=== PATIENT | female | born 1955 | race American Indian/Alaskan Native ===

== ENCOUNTER 2020-02-03 21:39 | Observation (INO) | payer OTHER ==
[2020-02-03] MEDS ORDERED: SODIUM CHLORIDE 0.9% 1000 ML 1,000 ML IV ONE (22:08)
--- NOTE | 2020-02-03 22:11 | Emergency Department Report ---
ED General Adult HPI - General Chief complaint: Syncope Stated complaint: SYNCOPAL EPISODE PUI?: No Time Seen by Provider: 02/03/20 21:52 Source: patient, EMS, RN notes reviewed Mode of arrival: Stretcher Limitations: No Limitations - History of Present Illness Initial comments: Primary care doctor: Dr. Medina The patient is a 64-year-old female who is not known to myself previously, has a past medical history of hypertension, high cholesterol, and sporadic hypokalemia. She is brought to the hospital today by emergency medical services with a complaint of lightheadedness and hypotension. The patient states that in 2016 she had a medical evaluation for low blood pressure, loss of consciousness, and was found to be hypokalemic. She takes losartan for blood pressure, and a sleep medication that "starts with a T, but I cannot remember the name of the medication." She denies DVT and pulmonary embolism risk factors. She denies physical pain. She states that over the past few days, she is not really consumed much water, because "I have been busy with things to do." Today, she was in her usual state of health, when she began to feel lightheaded, nauseous, and believes that she lost consciousness. Prior to the event, there is no complaint of headache, neck pain, chest pain, abdominal pain or shortness of breath. Apparently, she has lost consciousness or had near loss of consciousness twice today. She was seen by EMS, initially declined medical transport, had the event happen again, and at that point in time, agreed to medical transportation. She was found to be hypotensive in the field, with blood pressure in the 80s, started on IV fluids by EMS, and this improved her blood pressure. She states that she has had red stool secondary to watermelon consumption. She recreationally consumes tobacco, and occasional alcohol. She denies recreational drugs. At the moment, she is asymptomatic. -: Sudden Consistency: intermittent Improves with: none Worsens with: none - Related Data Home Medications Medication Instructions Recorded Confirmed Last Taken Ascorbic Acid [Vitamin C] 500 mg PO DAILY 02/03/20 02/03/20 02/03/20 AtorvaSTATin [Lipitor] 20 mg PO DAILY 02/03/20 02/03/20 02/03/20 Multivitamin Tab [Multiple Vitamin 1 tab PO DAILY 02/03/20 02/03/20 02/03/20 TAB (Theragran)] Olmesartan Medoxomil [Benicar] 40 mg PO DAILY 02/03/20 02/03/20 02/03/20 [place]-3 Fatty Acids/Fish Oil [Fish 1,000 mg PO DAILY 02/03/20 02/03/20 02/03/20 Oil] Allergies Allergy/AdvReac Type Severity Reaction Status Date / Time No Known Allergies Allergy Unverified 02/03/20 21:53 ED Review of Systems ROS: Stated complaint: SYNCOPAL EPISODE Other details as noted in HPI Constitutional: malaise. denies: fever Eyes: denies: eye discharge Respiratory: denies: cough, shortness of breath, SOB with exertion, SOB at rest, wheezing Cardiovascular: syncope. denies: chest pain, palpitations, dyspnea on exertion Gastrointestinal: nausea. denies: hematemesis, melena, hematochezia Genitourinary: denies: dysuria Musculoskeletal: denies: back pain Skin: denies: lesions Neurological: weakness Hematological/Lymphatic: denies: easy bleeding ED Past Medical Hx - Past Medical History Previous Medical History?: Yes Hx Hypertension: Yes Additional medical history: Hypokalemia, high cholesterol - Surgical History Past Surgical History?: No - Social History Smoking Status: Current Every Day Smoker Substance Use Type: Alcohol, Marijuana - Medications Home Medications: Home Medications Medication Instructions Recorded Confirmed Last Taken Type Ascorbic Acid [Vitamin C] 500 mg PO DAILY 02/03/20 02/03/20 02/03/20 History AtorvaSTATin [Lipitor] 20 mg PO DAILY 02/03/20 02/03/20 02/03/20 History Multivitamin Tab [Multiple Vitamin 1 tab PO DAILY 02/03/20 02/03/20 02/03/20 History TAB (Theragran)] Olmesartan Medoxomil [Benicar] 40 mg PO DAILY 02/03/20 02/03/20 02/03/20 History [place]-3 Fatty Acids/Fish Oil [Fish 1,000 mg PO DAILY 02/03/20 02/03/20 02/03/20 History Oil] ED Physical Exam - General Limitations: No Limitations General appearance: alert, in no apparent distress - Head Head exam: Present: atraumatic, normocephalic - Eye Eye exam: Present: normal appearance, PERRL, EOMI, other (Visual acuity intact to finger counting, color perception, reading at a close distance). Absent: nystagmus - ENT ENT exam: Present: normal exam, normal orophraynx, mucous membranes moist, normal external ear exam - Neck Neck exam: Present: normal inspection, full ROM. Absent: tenderness, meningismus - Respiratory Respiratory exam: Present: normal lung sounds bilaterally. Absent: respiratory distress - Cardiovascular Cardiovascular Exam: Present: regular rate, normal rhythm, normal heart sounds. Absent: bradycardia, tachycardia, irregular rhythm, systolic murmur, diastolic murmur, rubs, gallop - GI/Abdominal GI/Abdominal exam: Present: soft, normal bowel sounds. Absent: distended, tenderness, guarding, rebound, rigid, pulsatile mass - Rectal Rectal exam: Present: normal inspection, normal rectal tone, heme (-) stool, other (Chaperoned by nurse Jesika Coleman). Absent: heme (+) stool, black stool, bloody stool, fecal impaction, hemorrhoids, mass, tenderness - Extremities Exam Extremities exam: Present: normal inspection, full ROM, other (2+ pulses noted in the bilateral upper and lower extremities. There is no palpable cord. negative Homans sign. Muscular compartments are soft. The pelvis is stable.). Absent: pedal edema, calf tenderness - Back Exam Back exam: Present: normal inspection, full ROM. Absent: tenderness, CVA tenderness (R), CVA tenderness (L), paraspinal tenderness, vertebral tenderness - Neurological Exam Neurological exam: Present: alert, oriented X3, normal gait, other (There is no facial droop. The tongue is midline. Extraocular movements are intact bilaterally. There is 5 out of 5 strength in bilateral upper and lower extremities. Sensation is intact to light touch bilateral upper and lower extremities. There is no past-pointing. There is no pronator drift. There is normal [id number]. There is a normal gait.). Absent: motor sensory deficit - Psychiatric Psychiatric exam: Present: normal affect, normal mood - Skin Skin exam: Present: warm, dry, intact, normal color. Absent: rash ED Course Vital Signs 02/03/20 02/03/20 02/03/20 22:05 22:12 23:00 Temperature 98.5 F Pulse Rate 61 62 Respiratory 16 16 21 Rate Blood Pressure 113/69 Blood Pressure 101/58 [Right] O2 Sat by Pulse 99 100 100 Oximetry - Reevaluation(s) Reevaluation #1: 02/03/20 22:24 Differential diagnosis, including but not limited to: Orthostasis, vagal event, structural cardiac disease, thyroid derangement, electrolyte derangement Assessment and plan: 64-year-old female with decrease oral/water intake, with history of hypotension, loss of consciousness, now resolved. She is not current ly tachycardic, tachypneic or hypoxic, she denies DVT and pulmonary embolism risk factors, I do find the patient to be low risk by Wells criteria. She has a GCS of 15, NIH score of 0, walks with a steady gait. Blood pressure improved at this time. Check basic labs, EKG x2, troponin x2, x-ray of the chest, continue IV fluids, and observe patient. Discussed plan of care with patient, who verbalized understanding, and is amenable to this plan of care. Reevaluation #2: 02/03/20 22:34 Single/portable x-ray read the chest negative to my interpretation. Patient playing on her cell phone at this time, and in no acute distress. Reevaluation #3: 02/03/20 22:45 EKG found to be markedly abnormal. Questionable ischemic findings noted. The p atient is not having chest pain. However, given age, cardiovascular risk factor profile, EKG morphology, the patient is at moderate risk for major adverse cardiac event as per heart score. D-dimer ordered given left axis deviation with left anterior fascicular block. At this point in time, given history of syncope x2, hypotension, abnormal EKG, no recent history of cardiac risk ratification, patient meets criteria for hospitalization for the aforementioned. We will admit the patient once her initial diagnostics have resulted. Reevaluation #4: 02/03/20 23:52 ct head and chest negative Dr Moises Turner to admit for cardiac risk ratification, syncope ED Medical Decision Making - Lab Data Result diagrams: 02/03/20 22:30 02/03/20 22:30 Vital Signs 02/03/20 02/03/20 22:05 22:12 Temperature 98.5 F Pulse Rate 61 Respiratory 16 16 Rate Blood Pressure 101/58 [Right] O2 Sat by Pulse 99 100 Oximetry - EKG Data -: EKG Interpreted by Me EKG shows normal: sinus rhythm Rate: normal - EKG Data When compared to previous EKG there are: previous EKG unavailable 02/03/20 22:44 There is no prior EKG available for comparison. Sinus rhythm, 60 bpm, left axis deviation, left anterior fascicular block, biphasic/abnormal T waves V2, V3, V4, flattened T waves in the lateral leads. The EKG is abnormal, the EKG is not a STEMI - Radiology Data Radiology results: pending, report reviewed, image reviewed Print Report Referring Physician: STACY MARIA Patient Name: KYLE SINGH Date of : 1955 Sex: Female Report Date: 2020-02-03 Report Status: Finalized Findings [address] [address] XRay Report Signed Patient: KYLE SINGH MR#: [id number] : 1955 Acct:[id number] Age/Sex: 64 / F ADM Date: 02/03/20 Loc: ED Attending Dr: Ordering Physician: STACY MARIA MD Date of Service: 02/03/20 Procedure(s): XR chest 1V ap Accession Number(s): [id number] cc: STACY MARIA MD Fluoro Time In Minutes: CHEST 1 VIEW INDICATION / CLINICAL INFORMATION: syncope hypotension. COMPARISON: None available. FINDINGS: SUPPORT DEVICES: None. HEART / MEDIASTINUM: No significant abnormality. LUNGS / PLEURA: No significant pulmonary or pleural abnormality. No pneumothorax. ADDITIONAL FINDINGS: No significant additional findings. IMPRESSION: 1. No acute findings. Signer Name: Jh Gottlieb MD Signed: 02/03/2020 10:31 PM Workstation Name: [id number] Transcribed By: Dictated By: Jh Gottlieb MD Electronically Authenticated By: Jh Gottlieb MD Signed Date/Time: 02/03/202230 DD/ 30 TD/TT: Critical care attestation.: If time is entered above; I have spent that time in minutes in the direct care of this critically ill patient, excluding procedure time. ED Disposition Clinical Impression: Syncope, History of hypotension, Abnormal EKG Disposition: OP ADMIT IP TO THIS HOSP Is pt being admited?: Yes Does the pt Need Aspirin: Yes Condition: Good Instructions: Syncope (ED) Referrals: PRIMARY CARE,MD [Primary Care Provider] - 3-5 Days
[2020-02-03] MEDS: SODIUM CHLORIDE 0.9% 1000 ML 2,000 ML IV ONE (22:30)
--- NOTE | 2020-02-03 22:36 | XRay Report ---
CHEST 1 VIEW INDICATION / CLINICAL INFORMATION: syncope hypotension. COMPARISON: None available. FINDINGS: SUPPORT DEVICES: None. HEART / MEDIASTINUM: No significant abnormality. LUNGS / PLEURA: No significant pulmonary or pleural abnormality. No pneumothorax. ADDITIONAL FINDINGS: No significant additional findings. IMPRESSION: 1. No acute findings. Signer Name: Jh Gottlieb MD Signed: 02/03/2020 10:31 PM Workstation Name: [id number]
[2020-02-03 22:44] LABS: Hematocrit 37.3 % (30.3-42.9); Hemoglobin 12.2 gm/dl (10.1-14.3); Mean Corpuscular HGB Conc 33 % (30-34); Mean Corpuscular Volume 88 fl (79-97); Platelet Count 202 K/mm3 (140-440); Red Blood Count 4.22 M/mm3 (3.65-5.03); Red Cell Distribution Width 15.8 % (13.2-15.2)
[2020-02-03 22:53] LABS: INR 1.04 (0.87-1.13)
[2020-02-03 23:00] LABS: Alanine Aminotransferase 23 units/L (7-56); Albumin 4.1 g/dL (3.9-5); BUN/Creatinine Ratio 20; Blood Urea Nitrogen 22 mg/dL (7-17); Calcium 9.1 mg/dL (8.4-10.2); Hemolysis Index 3
--- NOTE | 2020-02-03 23:47 | Cat Scan Report ---
CTA CHEST WITH IV CONTRAST INDICATION: Elevated d-dimer, syncope. Shortness of breath. TECHNIQUE: Axial CT images were obtained through the chest after injection of IV contrast. 3 plane MIP reconstru ctions were produced. All CT scans at this location are performed using CT dose reduction for ALARA b y means of automated exposure control. COMPARISON: No prior CTs. FINDINGS: Pulmonary Arteries: No pulmonary emboli. Thoracic Aorta: No acute abnormality. Heart: Normal. Lungs: No acute air space or interstitial disease. Pleura: No pleural effusion. No pneumothorax. Lymph Nodes: No significant adenopathy. Additional Findings: None. Upper Abdomen: No acute findings. Skeletal Structures: No significant osseous abnormality. IMPRESSION: 1. No CT evidence for pulmonary embolism. 2. No acute findings. Signer Name: Luis Fraga MD Signed: 02/03/2020 11:42 PM Workstation Name: [id number]
--- NOTE | 2020-02-03 23:49 | Cat Scan Report ---
CT HEAD WITHOUT CONTRAST INDICATION: syncope hypotension. TECHNIQUE: All CT scans at this location are performed using CT dose reduction for ALARA by means of automated e xposure control. COMPARISON: None available. FINDINGS: HEMORRHAGE: None. EXTRA-AXIAL SPACES: Normal in size and morphology for the patient's age. VENTRICULAR SYSTEM: Normal in size and morphology for the patient's age. BRAIN PARENCHYMA: No acute findings. MIDLINE SHIFT OR HERNIATION: None. ORBITS: Normal as visualized. SOFT TISSUES OF HEAD: Normal. CALVARIUM: Normal. VISUALIZED PARANASAL SINUSES AND MASTOID AIR CELLS: Clear. ADDITIONAL FINDINGS: None. IMPRESSION: 1. No acute intracranial abnormality. Signer Name: Luis Fraga MD Signed: 02/03/2020 11:44 PM Workstation Name: [id number]
[2020-02-03] MEDS ORDERED: ASPIRIN 81 MG TAB CHEW PO ONE (23:53)
[2020-02-04] MEDS ORDERED: ONDANSETRON 4 MG/2 ML INJ IV PRN (00:31)
[2020-02-04] MEDS ORDERED: ACETAMINOPHEN 325 MG TAB PO PRN (00:31)
[2020-02-04] MEDS ORDERED: MAGNESIUM HYDROXIDE (MOM) ORAL LIQD UDC PO PRN (00:31)
--- NOTE | 2020-02-04 00:40 | History and Physical Report ---
History of Present Illness Date of examination: 02/04/20 Date of admission: 02/03/20 23:53 Chief complaint: Syncope History of present illness: Patient is a 64-year-old female with known history of hypertension hyperlipidemia and also history of hypokalemia in the past presenting to the emergency room today with lightheadedness and hypotension. She had a syncopal episode prior to reporting to the emergency room. Patient indicates that she had a similar episode sometime in 2005 when she was found to be hypotensive and also had some loss of consciousness. Work-up at that time revealed that she was hypokalemic. She denies any history of seizures. No fever or chills, no headaches, no chest pain or shortness of breath. Patient denies any sick contacts and no recent travel, no contact with anyone with COVID-19. General admits she has not been drinking enough water lately and she has also had loss of appetite. She has been quite worried lately about a lot of things happening in her life. She denies any homicidal suicidal ideations. Upon arrival in the emergency room patient had blood pressure with systolic in the 80s. Work-up however reveals elevated d-dimer, abnormal EKG. CT scan of the head, CT angiogram were unremarkable. Past History Past Medical History: hypertension, hyperlipidemia, other (History of hypokalemia) Past Surgical History: No surgical history Social history: smoking (Current daily smoker), alcohol abuse (Alcohol occasionally), other (Uses marijuana) Family history: hypertension (Hypertension in parents) Medications and Allergies Allergies Allergy/AdvReac Type Severity Reaction Status Date / Time No Known Allergies Allergy Unverified 02/03/20 21:53 Home Medications Medication Instructions Recorded Confirmed Last Taken Type Ascorbic Acid [Vitamin C] 500 mg PO DAILY 02/03/20 02/03/20 02/03/20 History AtorvaSTATin [Lipitor] 20 mg PO DAILY 02/03/20 02/03/20 02/03/20 History Multivitamin Tab [Multiple Vitamin 1 tab PO DAILY 02/03/20 02/03/20 02/03/20 History TAB (Theragran)] Olmesartan Medoxomil [Benicar] 40 mg PO DAILY 02/03/20 02/03/20 02/03/20 History [place]-3 Fatty Acids/Fish Oil [Fish 1,000 mg PO DAILY 02/03/20 02/03/20 02/03/20 History Oil] Active Meds: Active Medications Acetaminophen (Tylenol) 650 mg PO Q4H PRN PRN Reason: Pain MILD(1-3)/Fever >100.5/ROJO Sodium Chloride (Nacl 0.9% 1000 Ml) 1,000 mls @ 75 mls/hr IV DIRECT RIANA Magnesium Hydroxide (Milk Of Magnesia) 30 ml PO Q4H PRN PRN Reason: Constipation Ondansetron HCl (Zofran) 4 mg IV Q8H PRN PRN Reason: Nausea And Vomiting Sodium Chloride (Sodium Chloride Flush Syringe 10 Ml) 10 ml IV BID RIANA Sodium Chloride (Sodium Chloride Flush Syringe 10 Ml) 10 ml IV PRN PRN PRN Reason: LINE FLUSH Review of Systems Constitutional: no fever, no chills Ears, nose, mouth and throat: no nasal congestion, no sore throat Cardiovascular: syncope, no chest pain, no palpitations Respiratory: no cough, no shortness of breath Gastrointestinal: no abdominal pain, no nausea, no vomiting, no diarrhea Genitourinary Female: no flank pain, no dysuria, no hematuria Musculoskeletal: no neck pain, no low back pain Integumentary: no rash, no pruritis Neurological: no seizures, no headaches, no confusion Psychiatric: no anxiety, no depression Exam - Constitutional Vitals: Temp Pulse Resp BP Pulse Ox 98.5 F 62 21 113/69 100 02/03/20 22:05 02/03/20 23:00 02/03/20 23:00 02/03/20 23:00 02/03/20 23:00 General appearance: Present: no acute distress, well-nourished - EENT Eyes: Present: PERRL, EOM intact ENT: hearing intact, clear oral mucosa, dentition normal - Neck Neck: Present: supple, normal ROM - Respiratory Respiratory effort: normal Respiratory: bilateral: CTA - Cardiovascular Rhythm: regular Heart Sounds: Present: S1 & S2, systolic murmur (Soft systolic murmur). Absent: gallop, diastolic murmur, rub - Extremities Extremities: no ischemia, pulses intact, pulses symmetrical, No edema, Full ROM Peripheral Pulses: within normal limits - Abdominal General gastrointestinal: Present: soft, non-tender, non-distended, normal bowel sounds. Absent: mass - Integumentary Integumentary: Present: clear, warm, dry - Musculoskeletal Musculoskeletal: strength equal bilaterally - Psychiatric Psychiatric: appropriate mood/affect, intact judgment & insight, memory intact, cooperative - Neurologic Neurologic: CNII-XII intact, no focal deficits, moves all extremities HEART Score - HEART Score Troponin: Troponin T < 0.010 ng/mL (0.00-0.029) 02/03/20 22:30 Results - Labs CBC & Chem 7: 02/03/20 22:30 02/03/20 22:30 Labs: Abnormal lab results 02/03/20 02/03/20 02/03/20 Range/Units 22:30 22:30 22:30 RDW 15.8 H (13.2-15.2) % D-Dimer 1508.36 H (0-234) ng/mlDDU BUN 22 H (7-17) mg/dL Glucose 107 H (65-100) mg/dL Total Creatine Kinase 221 H (30-135) units/L Assessment and Plan - Patient Problems (1) Syncope Current Visit: Yes Status: Acute Plan to address problem: Probably secondary to hypotension. Patient has received some IV fluid with significant improvement in blood pressure. We will however schedule patient for echocardiogram and carotid Doppler. Will monitor vital signs closely. (2) Abnormal EKG Current Visit: Yes Status: Acute Plan to address problem: We will request cardiology consult for evaluation and further recommendation. No previous EKG to compare with. (3) Dehydration Current Visit: Yes Status: Acute Plan to address problem: Possibly secondary to decreased oral fluid intake. We will continue with IV fluid hydration. Will monitor BUN and creatinine. (4) DVT prophylaxis Current Visit: Yes Status: Acute Plan to address problem: Patient placed on subcutaneous heparin. (5) Full code status Current Visit: Yes Status: Acute
[2020-02-04] MEDS ORDERED: SODIUM CHLORIDE 0.9% 1000 ML 1,000 ML IV SCH (00:45)
[2020-02-04] MEDS ORDERED: ASPIRIN 81 MG TAB CHEW ONE (01:01)
[2020-02-04 01:03] LABS: Bacteria,Urine 1+ /HPF (Negative); Bilirubin,Urine NEG (Negative); Blood,Urine NEG (Negative); Color,Urine Yellow (Yellow); Mucus,Urine 1+ /HPF; Protein,Urine <15 mg/dL mg/dL (Negative); Urobilinogen,Urine < 2.0 mg/dL (<2.0)
[2020-02-04] MEDS: HEPARIN 5,000 UNIT/1 ML VIAL SUB-Q SCH ×3 (05:42→21:40)
--- NOTE | 2020-02-04 09:32 | Discharge Summary ---
Providers - Providers Date of Admission: 02/03/20 23:53 Date of discharge: 02/04/20 Attending physician: MARK SERRATO 02/04/20 00:34 Consult to Physician [CONS] Routine Comment: Consulting Provider: JULEE RODAS Physician Instructions: Reason For Exam: ABNORMAL EKG, SYNCOPE Primary care physician: FORGING [employer] SETTER UP Hospitalization Reason for admission: syncope Condition: Good Hospital course: Patient is a 64-year-old female with known history of hypertension hyperlipidemia and also history of hypokalemia in the past presenting to the emergency room yesterday with lightheadedness and hypotension. She had a syncopal episode prior to reporting to the emergency room. Patient indicates that she had a similar episode sometime in 2005 when she was found to be hypotensive and also had some loss of consciousness. The patient was admitted with diagnosis of syncope, dehydration/vasomotor nephropathy. On admission, patient's blood pressure was noted to be systolically in the 80s per H&P. Patient has slightly elevated BUN and d-dimer. CTA of the chest was found to be negative for PE. The patient received IV fluid hydration with her blood pressure subsequently becoming normotensive. Patient had no other episodes of lightheadedness or dizziness. Therefore, patient will be discharged home. Dedicated discharge time 35 minutes. Disposition: DC-01 TO HOME OR SELFCARE Time spent for discharge: 35 - Discharge Diagnoses (1) Hypotension Status: Acute (2) Vasomotor nephropathy Status: Acute (3) Dehydration Status: Acute (4) Syncope Status: Acute Core Measure Documentation - Palliative Care Palliative Care/ Comfort Measures: Not Applicable - Core Measures Any of the following diagnoses?: none Exam - Constitutional Vitals: Temp Pulse Resp BP Pulse Ox 98.3 F 57 L 18 119/69 99 02/04/20 07:46 02/04/20 07:46 02/04/20 07:46 02/04/20 07:46 02/04/20 07:46 General appearance: Present: no acute distress, well-nourished - EENT Eyes: Present: PERRL ENT: hearing intact, clear oral mucosa - Neck Neck: Present: supple, normal ROM - Respiratory Respiratory effort: normal Respiratory: bilateral: CTA - Cardiovascular Heart Sounds: Present: S1 & S2. Absent: rub, click - Extremities Extremities: pulses symmetrical, No edema Peripheral Pulses: within normal limits - Abdominal General gastrointestinal: Present: soft, non-tender, non-distended, normal bowel sounds Female genitourinary: Present: normal - Integumentary Integumentary: Present: clear, warm, dry - Musculoskeletal Musculoskeletal: gait normal, strength equal bilaterally - Psychiatric Psychiatric: appropriate mood/affect, intact judgment & insight - Neurologic Neurologic: CNII-XII intact, moves all extremities Plan Activity: advance as tolerated Weight Bearing Status: Weight Bear as Tolerated Diet: regular Follow up with: PRIMARY CAREMD [Primary Care Provider] - 3-5 Days JULEE RODAS MD [Staff Physician] - 7 Days
[2020-02-04] MEDS: LOSARTAN 50 MG TAB PO SCH (13:41)
[2020-02-04] MEDS ORDERED: LOSARTAN 50 MG TAB PO SCH (14:00)
--- NOTE | 2020-02-04 14:48 | Consultation ---
REFERRING PHYSICIAN: Dr. Ladarius Patel. PRIMARY CARE PHYSICIAN: Dr. Yang HISTORY OF PRESENT ILLNESS: The patient is a very pleasant 64-year-old -[place] female, who presents to [facility] after a syncopal episode. She has a history of hypertension, hyperlipidemia and hypokalemia. Had 2 episodes yesterday of lightheadedness, dizziness, nausea and syncope, was brought to the Emergency Room. 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 She is seen on Tele, feeling better. History is as per aforementioned. She does smoke. Discussed smoking cessation for at least 5 minutes. Alcohol use, drinks alcohol, drinking vodka yesterday. She currently has no abdominal pain, hematochezia, melena, hemoptysis or hematemesis. No rashes, fevers or chills. Feels better. MEDICATIONS: Inpatient and outpatient medications reviewed. ALLERGIES: No known drug, food or environmental allergies. PHYSICAL EXAMINATION: VITAL SIGNS: Tele reveals sinus rhythm in the 60s and 70s, blood pressures were normal at 120/60. She is afebrile. Tele reveals sinus rhythm. HEENT: Sclerae are anicteric. PERRLA. NECK: Supple, no masses, no JVD. CHEST: Clear to auscultation bilaterally, good air movement. CARDIOVASCULAR: Regular rhythm, S1, S2. ABDOMEN: Soft, nontender, nondistended. Normoactive bowel sounds in 4 quadrants. No mass or bruits. EXTREMITIES: No cyanosis, clubbing, edema. Good peripheral pulses. SKIN: Intact. No rashes. LABORATORY DATA: Troponin negative x 2. CBC and BMP are essentially unremarkable. Chest CTA negative for PE. No acute findings. Head CT, no acute abnormality. She had an EKG, which showed normal sinus rhythm, heart rate of 60, nonspecific T-wave changes laterally. ASSESSMENT: In summary, the patient is a pleasant 64-year-old -[place] female. Recurrent syncope of unclear etiology. Head and chest CT are unremarkable. Tele unremarkable. Troponin negative x 2. Follow up echocardiogram. Check nuclear stress test Further plan continue on these results. Thank you, Dr. Patel for this kind consultation. I will be happy to follow along with you. JOB# [id number] SBM/NTS
[2020-02-04] MEDS: hydrALAZINE 25 MG TAB PO SCH ×2 (16:34→21:39)
[2020-02-05 04:27] LABS: Basophils % (Auto) 0.5 % (0.0-1.8); Eosinophils % (Auto) 0.8 % (0.0-4.3); Hematocrit 34.8 % (30.3-42.9); Hemoglobin 11.5 gm/dl (10.1-14.3); Lymphocytes # (Auto) 0.9 K/mm3 (1.2-5.4); Mean Corpuscular HGB Conc 33 % (30-34); Mean Corpuscular Volume 87 fl (79-97); Monocytes # (Auto) 0.4 K/mm3 (0.0-0.8); Monocytes % (Auto) 8.8 % (0.0-7.3); Platelet Count 163 K/mm3 (140-440); Red Blood Count 3.99 M/mm3 (3.65-5.03); Red Cell Distribution Width 16.1 % (13.2-15.2)
[2020-02-05 04:38] LABS: INR 1.01 (0.87-1.13)
[2020-02-05 04:49] LABS: BUN/Creatinine Ratio 18; Blood Urea Nitrogen 9 mg/dL (7-17)
[2020-02-05 04:50] LABS: Calcium 8.8 mg/dL (8.4-10.2); Hemolysis Index 10
[2020-02-05] MEDS: HEPARIN 5,000 UNIT/1 ML VIAL SUB-Q SCH ×2 (05:25→16:24)
[2020-02-05] MEDS ORDERED: REGADENOSON 0.4 MG/5 ML INJ IV NR (08:16)
[2020-02-05] MEDS ORDERED: REGADENOSON 0.4 MG/5 ML INJ IV ONE (08:24)
[2020-02-05] MEDS: LOSARTAN 50 MG TAB PO SCH (11:12)
[2020-02-05] MEDS: hydrALAZINE 25 MG TAB PO SCH (11:12)
--- NOTE | 2020-02-05 11:14 | Progress Note ---
Assessment and Plan Assessment and plan: (1) Syncope Current Visit: Yes Status: Acute Plan to address problem: Probably secondary to hypotension. Patient has received some IV fluid with significant improvement in blood pressure. We will however schedule patient for echocardiogram and carotid Doppler. Will monitor vital signs closely. (2) Abnormal EKG Current Visit: Yes Status: Acute Plan to address problem: We will request cardiology consult for evaluation and further recommendation. No previous EKG to compare with. (3) Dehydration Current Visit: Yes Status: Acute Plan to address problem: Possibly secondary to decreased oral fluid intake. We will continue with IV fluid hydration. Will monitor BUN and creatinine. (4) DVT prophylaxis Current Visit: Yes Status: Acute Plan to address problem: Patient placed on subcutaneous heparin. (5) Full code status Current Visit: Yes Status: Acute - Patient Problems (1) Hypotension Current Visit: Yes Status: Acute (2) Vasomotor nephropathy Current Visit: Yes Status: Acute (3) Dehydration Current Visit: Yes Status: Acute (4) Syncope Current Visit: Yes Status: Acute History Interval history: No new issues overnight. Hospitalist Physical - Constitutional Vitals: Temp Pulse Resp BP Pulse Ox 99.4 F 60 18 171/90 97 02/05/20 07:45 02/05/20 07:45 02/05/20 08:03 02/05/20 07:45 02/05/20 07:45 General appearance: Present: no acute distress, well-nourished - EENT Eyes: Present: PERRL, EOM intact ENT: hearing intact, clear oral mucosa, dentition normal - Neck Neck: Present: supple, normal ROM - Respiratory Respiratory effort: normal Respiratory: bilateral: CTA - Cardiovascular Rhythm: regular Heart Sounds: Present: S1 & S2. Absent: gallop, rub - Extremities Extremities: no ischemia, No edema, Full ROM - Abdominal General gastrointestinal: soft, non-tender, non-distended, normal bowel sounds - Integumentary Integumentary: Present: clear, warm, dry - Neurologic Neurologic: CNII-XII intact, moves all extremities HEART Score - HEART Score Troponin: Troponin T < 0.010 ng/mL (0.00-0.029) 02/04/20 00:57 Results - Labs CBC & Chem 7: 02/05/20 04:03 02/05/20 04:03 Labs: Laboratory Last Values WBC 4.4 K/mm3 (4.5-11.0) L 02/05/20 04:03 RBC 3.99 M/mm3 (3.65-5.03) 02/05/20 04:03 Hgb 11.5 gm/dl (10.1-14.3) 02/05/20 04:03 Hct 34.8 % (30.3-42.9) 02/05/20 04:03 MCV 87 fl (79-97) 02/05/20 04:03 MCH 29 pg (28-32) 02/05/20 04:03 MCHC 33 % (30-34) 02/05/20 04:03 RDW 16.1 % (13.2-15.2) H 02/05/20 04:03 Plt Count 163 K/mm3 (140-440) 02/05/20 04:03 Lymph % (Auto) 21.0 % (13.4-35.0) 02/05/20 04:03 [place] % (Auto) 8.8 % (0.0-7.3) H 02/05/20 04:03 Eos % (Auto) 0.8 % (0.0-4.3) 02/05/20 04:03 Baso % (Auto) 0.5 % (0.0-1.8) 02/05/20 04:03 Lymph # 0.9 K/mm3 (1.2-5.4) L 02/05/20 04:03 [place] # 0.4 K/mm3 (0.0-0.8) 02/05/20 04:03 Eos # 0.0 K/mm3 (0.0-0.4) 02/05/20 04:03 Baso # 0.0 K/mm3 (0.0-0.1) 02/05/20 04:03 Seg Neutrophils % 68.9 % (40.0-70.0) 02/05/20 04:03 Seg Neutrophils # 3.0 K/mm3 (1.8-7.7) 02/05/20 04:03 PT 13.1 Sec. (12.2-14.9) 02/05/20 04:03 INR 1.01 (0.87-1.13) 02/05/20 04:03 D-Dimer 1508.36 ng/mlDDU (0-234) H 02/03/20 22:30 Sodium 139 mmol/L (137-145) 02/05/20 04:03 Potassium 3.6 mmol/L (3.6-5.0) 02/05/20 04:03 Chloride 107.8 mmol/L (98-107) H 02/05/20 04:03 Carbon Dioxide 18 mmol/L (22-30) L 02/05/20 04:03 Anion Gap 17 mmol/L 02/05/20 04:03 BUN 9 mg/dL (7-17) 02/05/20 04:03 Creatinine 0.5 mg/dL (0.7-1.2) L D 02/05/20 04:03 Estimated GFR > 60 ml/min 02/05/20 04:03 BUN/Creatinine Ratio 18 % 02/05/20 04:03 Glucose 113 mg/dL (65-100) H 02/05/20 04:03 Calcium 8.8 mg/dL (8.4-10.2) 02/05/20 04:03 Magnesium 2.00 mg/dL (1.7-2.3) 02/03/20 22:30 Total Bilirubin 0.20 mg/dL (0.1-1.2) 02/03/20 22:30 AST 20 units/L (5-40) 02/03/20 22:30 ALT 23 units/L (7-56) 02/03/20 22:30 Alkaline Phosphatase 59 units/L (35-129) 02/03/20 22:30 Total Creatine Kinase 221 units/L (30-135) H 02/03/20 22:30 Troponin T < 0.010 ng/mL (0.00-0.029) 02/04/20 00:57 Total Protein 7.1 g/dL (6.3-8.2) 02/03/20 22:30 Albumin 4.1 g/dL (3.9-5) 02/03/20 22:30 Albumin/Globulin Ratio 1.4 % 02/03/20 22:30 TSH 1.400 mlU/mL (0.270-4.200) 02/03/20 22:30 Urine Color Yellow (Yellow) 02/04/20 00:38 Urine Turbidity Slightly-cloudy (Clear) 02/04/20 00:38 Urine pH 5.0 (5.0-7.0) 02/04/20 00:38 Ur Specific [place] 1.044 (1.003-1.030) H 02/04/20 00:38 Urine Protein <15 mg/dl mg/dL (Negative) 02/04/20 00:38 Urine Glucose (UA) Neg mg/dL (Negative) 02/04/20 00:38 Urine Ketones Neg mg/dL (Negative) 02/04/20 00:38 Urine Blood Neg (Negative) 02/04/20 00:38 Urine Nitrite Neg (Negative) 02/04/20 00:38 Urine Bilirubin Neg (Negative) 02/04/20 00:38 Urine Urobilinogen < 2.0 mg/dL (<2.0) 02/04/20 00:38 Ur Leukocyte Esterase Mod (Negative) 02/04/20 00:38 Urine WBC (Auto) 13.0 /HPF (0.0-6.0) H 02/04/20 00:38 Urine RBC (Auto) 7.0 /HPF (0.0-6.0) 02/04/20 00:38 U Epithel Cells (Auto) 6.0 /HPF (0-13.0) 02/04/20 00:38 Urine Bacteria (Auto) 1+ /HPF (Negative) 02/04/20 00:38 Urine Mucus 1+ /HPF 02/04/20 00:38 Microbiology: Microbiology 02/04/20 00:38 Urine,Clean Catch Urine Culture - Preliminary NO GROWTH AFTER 24 HOURS - Diagnostic Impressions Diagnostic Impressions: Echocardiogram 02/04/20 00:32 Transthoracic Echocardiogram Indication: Syncope BP: 123/68 Conclusions *The left ventricular chamber size, wall thickness and systolic function are within normal limits. There are no wall motion abnormalities observed. Ejection fraction is normal. *The estimated ejection fraction is 60-65%. *Normal left ventricular diastolic filling is observed. *The pericardium appears normal. Findings Procedure Info: The study quality is good. Left Ventricle: The left ventricular chamber size, wall thickness and systolic function are within normal limits. There are no wall motion abnormalities observed. Ejection fraction is normal. The estimated ejection fraction is 60-65%. Normal left ventricular diastolic filling is observed. Left Atrium: The left atrium is normal in size with no visual thrombus identified. Right Ventricle: The right ventricular chamber size and systolic function are within normal limits. Right Atrium: The right atrium appears normal. Aortic Valve: The aortic valve is trileaflet. Mild aortic cusp sclerosis is present. There is no evidence of aortic regurgitation. There is no evidence of aortic stenosis. Mitral Valve: The mitral valve leaflets appear normal. There is trace of mitral regurgitation. There is no evidence of mitral stenosis. Tricuspid Valve: The tricuspid valve leaflets are normal. There is trace tricuspid regurgitation. The right ventricular systolic pressure is calculated at ( ) mmHg. There is no tricuspid stenosis. Pulmonic Valve: The pulmonic valve appears normal. There is mild pulmonic regurgitation. There is no pulmonic stenosis. Pericardium: The pericardium appears normal. Aorta: The aorta appears normal. Pulmonary Artery: The main pulmonary artery appears normal. Venous: The inferior vena cava appears normal in size. There is a greater than 50% respiratory change in the inferior vena cava dimension. Measurements Chambers 2D Name Value Normal Range IVSd (2D) 0.88 cm (0.6 - 1.1) LVPWd (2D) 0.81 cm (0.6 - 1.1) LVIDd (2D) 4.18 cm (3.7 - 5.6) LVIDs (2D) 2.79 cm (2 - 3.8) LV FS (2D) 33.24 % - EF Teichholz (2D) 62.28 % - Ao root diameter (2D) 2.72 cm (2 - 3.7) Volumes/Mass Name Value Normal Range LA ESV SP 4CH (A/L) 39.97 ml - LA ESV SP 2CH (A/L) 51.17 ml - LA ESV BP (A/L) 48.28 ml - LA ESV BP (A/L) index 27.91 ml/m2 - LA ESV SP 4CH (MOD) 37.54 ml - LA ESV SP 2CH (MOD) 44.05 ml - LA ESV BP (MOD) 43.35 ml - LA ESV BP (MOD) index 25.06 ml/m2 - LV EDV SP 4CH (MOD) 113.66 ml - LV ESV SP 4CH (MOD) 36.07 ml - EF SP 4CH (MOD) 68.26 % - LV EDV SP 2CH (MOD) 108.03 ml - LV ESV SP 2CH (MOD) 38.53 ml - EF SP 2CH (MOD) 64.33 % - LV EDV BP 111.15 ml - LV ESV BP 38.71 ml - BP EF (MOD) 65.17 % - Diastolic/Systolic Function Name Value Normal Range MV E-wave Vmax 1 m/sec - MV deceleration time 210.73 msec - MV A-wave Vmax 1.06 m/sec - MV E:A ratio 0.95 ratio - Aortic Valve Name Value Normal Range AV Vmax 1.38 m/sec - AV VTI 31.23 cm - AV peak gradient 7.63 mmHg - AV mean gradient 4.07 mmHg - LVOT diameter 2.04 cm - LVOT Vmax 0.89 m/sec - LVOT VTI 20.12 cm - LVOT peak gradient 3.15 mmHg - LVOT mean gradient 1.53 mmHg - SV LVOT 65.96 ml - CESAR (continuity Vmax) 2.1 cm2 - CESAR (continuity VTI) 2.11 cm2 - Ascending Ao 2.8 cm - Tricuspid Valve Name Value Normal Range TV E-wave Vmax 0.55 m/sec - TR Vmax 2.37 m/sec - TR peak gradient 22.49 mmHg - Pulmonic Valve/Qp:Qs Name Value Normal Range PV Vmax 0.79 m/sec - PV peak gradient 2.51 mmHg - GA end-diastolic Vmax 1.15 m/sec - RVOT Vmax 0.59 m/sec - RVOT VTI 14.15 cm - RVOT peak gradient 1.38 mmHg - PV acceleration time 175.07 msec - Burroughs/IV: Voiding Method Toilet IV Catheter Type [Right Hand] INT / Saline Lock IV Catheter Type [Left Peripheral IV Antecubital] Active Medications - Current Medications Current Medications: Generic Name Dose Route Start Last Admin Trade Name Freq PRN Reason Stop Dose Admin Acetaminophen 650 mg 02/04/20 00:31 Tylenol PO Q4H PRN Pain MILD(1-3)/Fever >100.5/ROJO Atorvastatin Calcium 20 mg 02/04/20 22:00 02/04/20 21:40 Lipitor PO 20 mg QHS RIANA Administration Heparin Sodium (Porcine) 5,000 unit 02/04/20 06:00 02/05/20 05:25 Heparin SUB-Q Not Given Q8HR RIANA Hydralazine HCl 50 mg 02/04/20 16:00 02/05/20 11:12 Apresoline PO 50 mg BID RIANA Administration Sodium Chloride 1,000 mls @ 125 mls/hr 02/04/20 00:45 02/04/20 13:19 Nacl 0.9% 1000 Ml IV 125 mls/hr DIRECT RIANA Administration Losartan Potassium 100 mg 02/04/20 14:00 02/05/20 11:12 Cozaar PO 100 mg QDAY RIANA Administration Magnesium Hydroxide 30 ml 02/04/20 00:31 Milk Of Magnesia PO Q4H PRN Constipation Ondansetron HCl 4 mg 02/04/20 00:31 Zofran IV Q8H PRN Nausea And Vomiting Sodium Chloride 10 ml 02/04/20 10:00 02/05/20 11:13 Sodium Chloride Flush Syringe 10 Ml IV 10 ml BID RIANA Administration Sodium Chloride 10 ml 02/04/20 00:31 Sodium Chloride Flush Syringe 10 Ml IV PRN PRN LINE FLUSH
[2020-02-05 12:38] VITALS: BP 162/94
--- NOTE | 2020-02-05 13:04 | Progress Note ---
Assessment and Plan Chest CTA negative for PE. Head CT NAF. Carotid studies pending. tte reviewed - EF 60-65%, no significant abnormalities. S/p treadmill stress test today which was negative. tele reviewed - in SR/SB since admission, no significant arrhythmias noted. Currently stable cardiac status. Pt may discharge from cardiology standpoint. Recommend pt follow up in our office with Dr. Rosanna Lynn within 2 weeks of discharge ([phone]). The patient has been seen in conjunction with Dr. Rosanna Lynn who agrees with the assessment and plan of care. - Patient Problems (1) Syncope Current Visit: Yes Status: Acute (2) HTN (hypertension) Current Visit: Yes Status: Chronic (3) Hyperlipidemia Current Visit: Yes Status: Chronic (4) Tobacco use Current Visit: Yes Status: Chronic (5) UTI (urinary tract infection) Current Visit: Yes Status: Acute Subjective Date of service: 02/05/20 Principal diagnosis: syncope Interval history: for stress test today, no current cardiac complaints. tele reviewed - in SR HR 60s with SB noted overnight, HR low 46bpm. Objective Last Vital Signs Temp 99.4 F 02/05/20 07:45 Pulse 58 L 02/05/20 11:09 Resp 18 02/05/20 11:09 BP 162/94 02/05/20 11:09 Pulse Ox 98 02/05/20 11:09 - Physical Examination General: No Apparent Distress HEENT: Positive: PERRL, Normocephaly, Mucus Membranes Moist Neck: Positive: neck supple, trachea midline Cardiac: Positive: Reg Rate and Rhythm, S1/S2 Lungs: Positive: clear to auscultation Neuro: Positive: Grossly Intact Abdomen: Negative: Tender Skin: Negative: Rash Musculoskeletal: No Pain Extremities: Absent: edema - Labs and Meds Coagulation 02/05/20 Range/Units 04:03 PT 13.1 (12.2-14.9) Sec. INR 1.01 (0.87-1.13) CBC 02/05/20 Range/Units 04:03 WBC 4.4 L (4.5-11.0) K/mm3 RBC 3.99 (3.65-5.03) M/mm3 Hgb 11.5 (10.1-14.3) gm/dl Hct 34.8 (30.3-42.9) % Plt Count 163 (140-440) K/mm3 Lymph # 0.9 L (1.2-5.4) K/mm3 [place] # 0.4 (0.0-0.8) K/mm3 Eos # 0.0 (0.0-0.4) K/mm3 Baso # 0.0 (0.0-0.1) K/mm3 Comprehensive Metabolic Panel 02/05/20 Range/Units 04:03 Sodium 139 (137-145) mmol/L Potassium 3.6 (3.6-5.0) mmol/L Chloride 107.8 H (98-107) mmol/L Carbon Dioxide 18 L (22-30) mmol/L BUN 9 (7-17) mg/dL Creatinine 0.5 L D (0.7-1.2) mg/dL Glucose 113 H (65-100) mg/dL Calcium 8.8 (8.4-10.2) mg/dL - Imaging and Cardiology EKG: report reviewed, image reviewed Exercise stress test: report reviewed Echo: report reviewed - Telemetry EKG Rhythm: Sinus Rhythm
--- NOTE | 2020-02-05 14:25 | Vascular Lab Report ---
BILATERAL CAROTID DOPPLER ULTRASOUND INDICATION : SYNCOPE TECHNIQUE: Grayscale and color Doppler imaging performed through the neck. COMPARISON: None FINDINGS: Right: There is no significant atherosclerotic disease. Peak systolic velocity in the CCA is 68 cm/ s with end-diastolic velocity of 20 cm/s. Peak systolic velocity in the proximal ICA is 91 cm/s with end-diastolic velocity of 37 cm/s. ICA to CCA ratio is less than 2. There is antegrade flow in the E CA and the vertebral artery. Left: There is no significant atherosclerotic disease. Peak systolic velocity in the CCA is 77 cm/s w ith end-diastolic velocity of 22 cm/s. Peak systolic velocity in the proximal ICA is 105 cm/s with en d-diastolic velocity of 41 cm/s. ICA to CCA ratio is less than 2. There is antegrade flow in the ECA and the vertebral artery. IMPRESSION: No hemodynamically significant stenosis by NASCET criteria. Doppler velocities indicate l ess than 50% luminal narrowing throughout both carotid systems. Signer Name: Jeremy Daniel Jr, MD Signed: 02/05/2020 2:21 PM Workstation Name: [id number]
--- NOTE | 2020-02-05 14:26 | Treadmill Report ---
NUCLEAR PERFUSION SCAN REFERRING PHYSICIAN: Hospitalist service. PROTOCOL: The patient was brought to the stress lab in a postoperative state, given 10 mCi of technetium 99m at rest. The patient underwent treadmill stress test per standard protocol. At peak stress, the patient was given 26 mCi is technician 99m. Shortly thereafter, the patient underwent stress imaging. Raw imaging reveals mild GI artifact, no significant motion artifact. SPECT images examined carefully in horizontal long axis, vertical long axis, short axis views. There is normal homogenous uptake of radioisotope in all reported segments. No evidence of significant fixed or reversible perfusion defects suggestive of prior infarction or ischemia. Gated wall motion reveals normal systolic thickening, calculated ejection fraction of 60%. No TID. CONCLUSIONS: 1. Normal myocardial perfusion scan without evidence of active ischemia or prior infarction. 2. Normal left ventricular systolic performance without evidence of transient ischemic dilatation or stress-induced segmental wall motion abnormalities. 3. Treadmill stress test reported separately. JOB# [id number] SBAvtar/CAMILA
== END 2020-02-05 16:32 | disposition home or self-care (01) ==
LOC: ED 21:39 → 4A 23:53
PROVIDERS: ADMIT Internal Medicine Geriatric Medicine; ATTEND Hospitalist
DX: I95.9 Hypotension, unspecified (principal); N17.0 Acute kidney failure with tubular necrosis; E86.0 Dehydration; R55 Syncope and collapse; R94.31 Abnormal electrocardiogram [ECG] [EKG]; N39.0 Urinary tract infection, site not specified; I10 Essential (primary) hypertension; E78.5 Hyperlipidemia, unspecified; F17.200 Nicotine dependence, unspecified, uncomplicated; Z79.899 Other long term (current) drug therapy
CPT/HCPCS: 36415; 70450; 71045; 71275; 78452; 80048; 80053; 81001; 82550; 83735; 84443; 84484; 85025; 85027; 85379; 85610; 87086; 93005; 93017; 93306; 93880; 96360; 96361; 96372; 99285; A9270; A9502; G0378; J1644; J7030; Q9967; J2785

== ENCOUNTER 2020-04-05 07:47 | Day surgery (SDC) | payer OTHER ==
[~2020-04-05 07:47] MED LIST: SODIUM CHLORIDE 0.9% 1000 ML 1,000 ML IV SCH
--- NOTE | 2020-04-05 09:05 | Anesthesia Consultation ---
Anesthesia Consult and Med Hx Date of service: 04/05/20 - Airway Anesthetic Teeth Evaluation: Good ROM Head & Neck: Adequate Mental/Hyoid Distance: Adequate Mallampati Class: Class II Intubation Access Assessment: Probably Good - Pulmonary Exam CTA: Yes - Cardiac Exam Cardiac Exam: RRR - Pre-Operative Health Status ASA Pre-Surgery Classification: ASA2 Proposed Anesthetic Plan: MAC - Pulmonary Hx Smoking: Yes (<1/2PPD) Hx Respiratory Symptoms: No Hx Sleep Apnea: No - Cardiovascular System Hx Hypertension: Yes (took amlodipine, olmesartan today) Hx Heart Attack/AMI: No Hx Percutaneous Transluminal Coronary Angioplasty (PTCA): No Hx Cardia Arrhythmia: No - Central Nervous System CVA: No - Gastrointestinal Hx Gastroesophageal Reflux Disease: No - Endocrine Hx Renal Disease: No Hx Liver Disease: No Hx Insulin Dependent Diabetes: No Hx Non-Insulin Dependent Diabetes: No Hx Thyroid Disease: No - Other Systems Hx Obesity: No
--- NOTE | 2020-04-05 09:05 | Anesthesia Day of Surgery ---
Anesthesia Day of Surgery - Day of Surgery Patient Examined: Yes Patient H&P Reviewed: Yes Patient is NPO: Yes
[2020-04-05] MEDS ORDERED: propofoL 200 MG/20 ML VIAL IV ONE (09:52)
--- NOTE | 2020-04-05 10:30 | Procedure Note ---
Date of procedure: 04/05/20 Pre-op diagnosis: Colon Polyp Screening. F/H/O Cancer (father) Post-op diagnosis: other (Solitary,Small Sigmoid Polyp (possibly Hyperplastic)/ No Diverticular Disease noted/ Mild to Moderate Internal Hemorrhoid) Procedure: Colonoscopy with Cold Biopsy Anesthesia: MAC Surgeon: HERBERT GUERRERO Estimated blood loss: minimal Pathology: list Specimen disposition: to lab Condition: stable Disposition: same day (Avoid aspirin and NSAID for 5 days; otherwise resume home medication. Follow up in 1 to 2 weeks ([phone]).)
[2020-04-05 11:29] VITALS: BP 115/75
--- NOTE | 2020-04-05 13:59 | Post Anesthesia Evaluation ---
- Post Anesthesia Evaluation Patient Participated: Yes Airway Patent: Yes Stable Respiratory Function: Yes Nausea/Vomiting: No Temp > 96.8F: Yes Pain Manageable: Yes Adequeate Hydration: Yes Anesthesia Complications: No
--- NOTE | 2020-04-05 13:59 | Operative Report ---
PROCEDURE: Colonoscopy with biopsy. INDICATIONS: This is a 64-year-old -[place] female with a family history of cancer. The patient's father had cancer. She has had partial hysterectomy because of fibroid. Last colonoscopy was several years ago. 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 DESCRIPTION OF PROCEDURE: The procedure was done after getting informed consent with MAC anesthesia. Initial rectal exam was unremarkable. Instrument was passed through the rectum onto the cecum, which was identified by the ileocecal valve and the appendiceal orifice. The cecum was also visualized on the retroverted view. No additional pathology was noted. Visualization was fair to good. Cecum, ascending colon, transverse colon, descending colon showed normal mucosa. There was a solitary small, possibly hyperplastic polyp noted in the sigmoid that was removed by cold biopsy with minimal bleeding and the rectum showed mild to moderate internal hemorrhoid on the retroverted view. There was no diverticular disease. No complications associated with the procedure and only minimal bleeding from the solitary small sigmoid polyp that was removed by cold biopsy. ASSESSMENT: Colon polyp screening, family history of cancer. The patient's father had cancer, solitary small sigmoid polyp, possibly hyperplastic. No diverticula, mild to moderate internal hemorrhoid. PLAN: To avoid aspirin and aspirin-related products for the next 4-5 days. Otherwise, resume home medication and followup in the office in 1-2 weeks' time. The procedure was done in the GI lab with assistance of the GI lab team, which included Phuong BENAVIDEZ; Eulogio golden and with assistance of anesthesia. JOB# [id number] CANDIS/CAMILA
== END 2020-04-05 11:35 | disposition home or self-care (01) ==
LOC: GIO 07:47
DX: Z12.11 Encounter for screening for malignant neoplasm of colon (principal); K64.8 Other hemorrhoids; K63.5 Polyp of colon; I10 Essential (primary) hypertension; E78.5 Hyperlipidemia, unspecified; F17.210 Nicotine dependence, cigarettes, uncomplicated; Z79.899 Other long term (current) drug therapy; Z79.82 Long term (current) use of aspirin; Z86.79 Personal history of other diseases of the circulatory system; Z87.440 Personal history of urinary (tract) infections; Z80.1 Family history of malignant neoplasm of trachea, bronchus and lung; Z80.0 Family history of malignant neoplasm of digestive organs; Z82.49 Family history of ischemic heart disease and other diseases of the circulatory system
CPT/HCPCS: 45380; 88305; J2704; J7030

== ENCOUNTER 2020-09-07 23:23 | Emergency (ER) | payer OTHER ==
[2020-09-07 23:48] VITALS: BP 129/55
--- NOTE | 2020-09-08 00:03 | Emergency Department Report ---
ED General Adult HPI - General Chief complaint: Syncope Stated complaint: HYPOTENSION PUI?: No Time Seen by Provider: 09/07/20 23:39 Source: patient, EMS ( EMS documentation not available at time of chart dictation ), RN notes reviewed, old records reviewed Mode of arrival: Stretcher Limitations: No Limitations - History of Present Illness Initial comments: The patient was evaluated in the emergency department for symptoms described in the history of present illness. He/she was evaluated in the context of the global COVID-19 pandemic, which necessitated consideration that the patient might be at risk for infection with the virus that causes COVID-19. Institutional protocols and algorithms that pertain to the evaluation of patients at risk for COVID-19 are in a state of rapid change based on information released by regulatory bodies including the CDC and federal and state organizations. These policies and algorithms were followed during the patient's care in the emergency department. Please note that these policies, procedures and recommendations changed on a rapid basis. Patient is a pleasant 64-year-old female. I have evaluated her in the past. This patient was evaluated by myself last year, for hypotension and near syncope. She had a unremarkable cardiac work-up and was stratification. Today, the patient is brought to the hospital by emergency medical services. Patient states that she is staying with a friend, and was consuming [place] food, which was left out for couple days, not refrigerated, that she vomited x1. The patient states, that to the best of her recollection, she did not lose consciousness. She denies physical pain. She states "I am fine." Patient did endorse consuming 1 glass of wine. The patient denies headache, neck pain, chest pain, abdominal pain, shortness of breath, nausea, vomiting, diarrhea at this time, urinary symptoms, loss of taste and loss of smell. The patient states that she has no medical complaints, and would like to be discharged. Triage nursing documentation indicates the patient may have been hypotensive, with an episode of near syncope. Patient states that she recently had blood work with an EKG with her outpatient primary care doctor "which were all fine." She states that she has no complaints at this time, and she would like to be d ischarged. Improves with: none Worsens with: none Associated Symptoms: denies other symptoms - Related Data Home Medications Medication Instructions Recorded Confirmed Last Taken Ascorbic Acid [Vitamin C] 500 mg PO DAILY 02/03/20 02/03/20 04/03/20 AtorvaSTATin [Lipitor] 20 mg PO DAILY 02/03/20 02/03/20 04/03/20 Multivitamin Tab [Multiple Vitamin 1 tab PO DAILY 02/03/20 02/03/20 04/03/20 TAB (Theragran)] Olmesartan Medoxomil [Benicar] 40 mg PO DAILY 02/03/20 02/03/20 04/03/20 [place]-3 Fatty Acids/Fish Oil [Fish 1,000 mg PO DAILY 02/03/20 02/03/20 04/03/20 Oil] Amlodipine-Olmesartan 10-20 mg 04/05/20 04/05/20 06:00 Amlodipine-Olmesartan 10-40 mg 04/05/20 04/05/20 06:00 Aspirin BABY CHEW TAB 04/05/20 04/03/20 Allergies Allergy/AdvReac Type Severity Reaction Status Date / Time No Known Allergies Allergy Unverified 02/03/20 21:53 ED Review of Systems ROS: Stated complaint: HYPOTENSION Other details as noted in HPI Comment: All other systems reviewed and negative ED Past Medical Hx - Past Medical History Hx Hypertension: Yes Hx Heart Attack/AMI: No Hx Liver Disease: No Hx Renal Disease: No Additional medical history: Hypokalemia, high cholesterol - Social History Smoking Status: Current Every Day Smoker Substance Use Type: Alcohol, Marijuana - Medications Home Medications: Home Medications Medication Instructions Recorded Confirmed Last Taken Type Ascorbic Acid [Vitamin C] 500 mg PO DAILY 02/03/20 02/03/20 04/03/20 History AtorvaSTATin [Lipitor] 20 mg PO DAILY 02/03/20 02/03/20 04/03/20 History Multivitamin Tab [Multiple Vitamin 1 tab PO DAILY 02/03/20 02/03/20 04/03/20 History TAB (Theragran)] Olmesartan Medoxomil [Benicar] 40 mg PO DAILY 02/03/20 02/03/20 04/03/20 History [place]-3 Fatty Acids/Fish Oil [Fish 1,000 mg PO DAILY 02/03/20 02/03/20 04/03/20 History Oil] Amlodipine-Olmesartan 10-20 mg 04/05/20 04/05/20 06:00 History Amlodipine-Olmesartan 10-40 mg 04/05/20 04/05/20 06:00 History Aspirin BABY CHEW TAB 04/05/20 04/03/20 History ED Physical Exam - General Limitations: No Limitations General appearance: alert, in no apparent distress - Head Head exam: Present: atraumatic, normocephalic - Eye Eye exam: Present: normal appearance, PERRL, EOMI, other (Visual acuity intact to finger counting, color perception, reading at a close distance). Absent: nystagmus - ENT ENT exam: Present: normal exam, normal orophraynx, mucous membranes moist, normal external ear exam - Neck Neck exam: Present: normal inspection, full ROM. Absent: tenderness, meningismus - Respiratory Respiratory exam: Present: normal lung sounds bilaterally. Absent: respiratory distress, wheezes, rales, rhonchi, stridor, decreased breath sounds - Cardiovascular Cardiovascular Exam: Present: regular rate, normal rhythm, normal heart sounds. Absent: bradycardia, tachycardia, irregular rhythm, systolic murmur, diastolic murmur, rubs, gallop - GI/Abdominal GI/Abdominal exam: Present: soft, normal bowel sounds. Absent: distended, tenderness, guarding, rebound, rigid, pulsatile mass - Extremities Exam Extremities exam: Present: normal inspection, full ROM, other (2+ pulses noted in the bilateral upper and lower extremities. There is no palpable cord. negative Homans sign. Muscular compartments are soft. The pelvis is stable.). Absent: pedal edema, calf tenderness - Back Exam Back exam: Present: normal inspection, full ROM. Absent: tenderness, CVA tenderness (R), CVA tenderness (L), paraspinal tenderness, vertebral tenderness - Neurological Exam Neurological exam: Present: alert (Patient able to add 4+4, subtract 100-7, recall 3 out of 3 words at 0 minutes and 5 minutes.), oriented X3, normal gait, other (No facial droop. Tongue midline. Extraocular movements intact bilaterally. Facial sensation intact to light touch in V1, V2, V3 distribution bilaterally. 5 and a 5 strength in 4 extremities. Sensation intact to light touch in 4 extremities.). Absent: motor sensory deficit - Psychiatric Psychiatric exam: Present: normal affect, normal mood - Skin Skin exam: Present: warm, dry, intact, normal color. Absent: rash ED Course Vital Signs 09/07/20 23:40 Temperature 97.9 F Pulse Rate 63 Respiratory 18 Rate Blood Pressure 129/55 O2 Sat by Pulse 100 Oximetry ED Medical Decision Making - Lab Data Vital Signs 09/07/20 23:40 Temperature 97.9 F Pulse Rate 63 Respiratory 18 Rate Blood Pressure 129/55 O2 Sat by Pulse 100 Oximetry - Medical Decision Making Differential diagnosis, including but not limited to: Feared complaint unfou nded, orthostasis, vagal event, dehydration, general medical exam Assessment and plan: 64-year-old female who is clinically sober at this time, with a GCS of 15, awake, alert, oriented, with no acute complaints. We did recommend laboratory studies and EKG, which the patient declined. She states that she had a recent outpatient laboratory studies and EKG performed by her primary care doctor. Patient is awake, alert, oriented, exhibits decision- making capacity, and free from distracting injury. She states that she will have her friend pick her up. Critical care attestation.: If time is entered above; I have spent that time in minutes in the direct care of this critically ill patient, excluding procedure time. ED Disposition Clinical Impression: General medical exam Disposition: [id number] TO HOME OR SELFCARE Is pt being admited?: No Does the pt Need Aspirin: No Condition: Stable Additional Instructions: Recommend that patient follow-up with her primary care doctor within the next 3 to [address] or operate motor vehicles until cleared to do so by her primary care doctor. Minimize/avoid consumption of unrefrigerated food, and alcohol. Please return to the emergency room right away with new pain, worsening pain, migration of pain, projectile vomiting, change in mental status, confusion, inability to tolerate liquid feeds, new, worsened or different symptoms not present on the initial emergency room evaluation. Referrals: BECCA ROSENBAUM MD [Primary Care Provider] - 3-5 Days
== END 2020-09-08 00:24 | disposition home or self-care (01) ==
LOC: ED 23:23
DX: I95.9 Hypotension, unspecified (principal); Z00.00 Encounter for general adult medical examination without abnormal findings; I10 Essential (primary) hypertension; F17.200 Nicotine dependence, unspecified, uncomplicated; F12.10 Cannabis abuse, uncomplicated; Z79.899 Other long term (current) drug therapy
CPT/HCPCS: 99283